=== PATIENT | female | born 1940 | race Caucasian/White ===

== ENCOUNTER → 2017-01-31 | Outpatient (CLI) | payer MEDICARE ==
[~2017-01-31] MED LIST: ATENOLOL50 MG PO; BENADRYL25 M1 PO; CHEWABLE ASPIRI81 MG PO; MEDROL 4MG. DOSE4 MG PO
--- NOTE | 2017-02-01 08:01 | RADIOLOGY REPORT PS360 ---
MRI-BRAIN W/O HISTORY: SYNCOPE ORDERING PHYSICIAN: Danny Carlson MD PATIENT AGE: 76 years COMPARISON: None TECHNIQUE: Standard multiplanar multiecho sequences are performed without contrast. FINDINGS: No midline shift, mass effect, intracranial hemorrhage, or hydrocephalus. No evidence of acute infarction or abnormal restricted diffusion. The cerebellopontine angles, cerebellum, and brainstem have an unremarkable appearance. There are scattered periventricular and subcortical T2 white matter hyperintensities consistent with ischemic gliotic change from microvascular disease. The hippocampal gyri are unremarkable in the temporal horns are symmetric. No mastoid effusion. Minimal mucosal thickening involves the sphenoid sinus on the left. IMPRESSION: 1. No acute intracranial pathology. 2. Mild periventricular ischemic gliotic change from microvascular disease. 3. Mild left sphenoid sinus disease
== END ==
LOC: RAD 13:27
DX: R55 Syncope and collapse (principal)

== ENCOUNTER → 2017-02-11 | Outpatient (CLI) | payer MEDICARE | LOC: RT 12:34 | DX: R55 Syncope and collapse (principal) ==

== ENCOUNTER 2017-05-04 00:39 | Inpatient (IN) | payer MEDICARE ==
[~2017-05-04] VITALS: Ht 152.4 cm; Wt 66.4 kg
[2017-05-04] VITALS (8 sets, daily range): BP systolic 112–148; BP diastolic 45–81
[~2017-05-04 00:39] MED LIST changes: +ASPIRIN 81MG TA81 MG PO; -CHEWABLE ASPIRI81 MG PO
[2017-05-04] MEDS ORDERED: CARVEDILOL 25MG25 MG PO (00:55)
[2017-05-04 01:08] LABS: LYMPH # 1.3 K/mm3 (0.7-4.5); LYMPH % 7.4 % (10-50.0)
[2017-05-04 01:11] LABS: HEMOGLOBIN 12.1 g/dL (12.2-16.2)
[2017-05-04 01:16] LABS: URINE BLOOD NEGATIVE (NEG)
[2017-05-04 01:20] LABS: URINE BILIRUBIN - DIPSTICK NEGATIVE (NEG)
--- OUTSIDE RECORDS SUMMARY | 2017-05-04 01:21 | External Medical Summary Rpt ---
Author Author SUBHASH Langford, SUBHASH Langford Organization [employer] Address Unknown Phone Unavailable
--- OUTSIDE RECORDS SUMMARY | 2017-05-04 01:21 | External Medical Summary Rpt | CCD ---
Author Author [employer] Organization [employer] Address Unknown Phone Unavailable Purpose Continuity of Care Document - through 2016
--- OUTSIDE RECORDS SUMMARY | 2017-05-04 01:21 | External Medical Summary Rpt | CCD ---
Demographics Preferred Language Turkmen Marital Status Unknown Anabaptist Affiliation Unknown Race Unknown Ethnic Group Unknown Author Author , SUBHASH Organization [employer] Address Unknown Phone Immunization Unable to retrieve immunization data due to connection failure with Immunization Registry. Please try again later.
--- OUTSIDE RECORDS SUMMARY | 2017-05-04 01:21 | External Medical Summary Rpt | CCD ---
Demographics Preferred Language S[place] Tomean Marital Status Unknown Adventism Affiliation Unknown Race Unknown Ethnic Group Unknown Author Author , SUBHASH Organization [employer] Address Unknown Phone Immunization Unable to retrieve immunization data due to connection failure with Immunization Registry. Please try again later.
[2017-05-04 01:38] LABS: NEUTROPHILS 83 % (42-76)
--- NOTE | 2017-05-04 02:32 | Emergency Room Report ---
History of Present Illness Time Seen by MD Olivas Presenting Problem in Triage Pt arrived:Walked Presenting Problem:SHARP LOWER ABDOMINAL PAIN Onset of symptoms date/time:05/04/17 or onset unknown for: Treatment Prior to Arrival: TYLENOL AROUND 1700 [employer] Provided by:SELF Sepsis Risk Assessment: Temp: 100.6 B/P: 149/75 MAP: 102 Pulse: 87 Resp: 18 Recent fever? N Clinical Suspician of Infection? N Mental Status: 1 - Regular (Normal Baseline) Sepsis Risk:Low Sepsis Risk Have you (or family members/close friends) recently traveled outside the [place]? N If Yes, where/when: Have you had exposure to infectious disease within the past month? N TB? Other? Specify: Source patient, RN notes reviewed, family, old records Exam Limitations no limitations Comment progressive abd pain over the last 2 days with assoc constipation with no vomiting or diarrhea and no fever - Cardiac Chest Pain Chest pain indicative of cardiac No Timing/Duration this evening Severity moderate ALLERGIES Coded Allergies: MDX - Levofloxacin (Levofloxacin) (Mild, NA-HALLUCINATIONS 06/12/10) Converted from Generic Allergy: Levofloxacin Converted Allergy Severity of U Converted Allergy Reaction of Converted from Ingredient Allergy: Levofloxacin Home Medications Reported Medications ATENOLOL (Atenolol 50MG) 50 MG PO BID Aspirin (Aspirin, Chewable) 81 MG PO DAILY Carvedilol (Carvedilol 25MG) 25 MG PO BID History Medical History General CAD? No Angina: No MS: No Hypertension? Yes Hyperlipidemia? No CHF? No DVT? No PE? No COPD? No Asthma? No Anemia? No GERD? No Gastric ulcers? No GI Bleed? No Hernia? No Thyroid Problems? Yes Hypothyroidism? Yes CVA? No Seizures? No Diabetes? No Renal Insuffiency? No End Stage Renal Disease? No UTI? No Stones? No BPH? No GB Disease: Yes Nephritic Syndrome? No Asplenia? No Hepatitis? No Sickle Cell Disease? No Arthritis? No Migraines? No Cataracts? No Glaucoma? No MRSA? No HIV? No TB? No Anxiety? No Depression? No Cancer? No More? No Immunization Hx DT/Tetanus NOT SURE Flu REFUSED Pneumonia REFUSED Surgical Hx Previous Surgery?Y D & C Gallbladd Family History Family Hx Diabetes No CAD No Hypertension No Hyperlipidemia No Cancer No TB No Social History Smoking Hx Smoker: Never Smoker Tobacco: No Are you/the child exposed to second-hand smoke: No Alcohol Alcohol: No Drugs none Review of Systems All Other Systems Reviewed and Negative Constitutional denies fever Eyes denies drainage ENT denies: ear discharge, epistaxis, throat pain. Respiratory denies cough, denies shortness of breath, denies wheezing Cardiovascular denies chest pain, denies palpitations, denies syncope Gastrointestinal see HPI, abdominal pain, constipation, denies diarrhea, denies nausea, denies vomiting Genitourinary denies: dysuria, frequency, hesitancy, hematuria. Musculoskeletal denies back pain, denies joint pain, denies joint swelling, denies neck pain Skin denies rash Psychiatric/Neurological denies headache, denies seizure Physical Exam Vital Signs Vital Signs Date Time Temp Pulse Resp B/P Pulse O2 O2 Flow FiO2 Ox Delivery Rate 05/04 0234 87 20 160/76 93 05/04 0155 100.6 87 18 149/75 93 05/04 0044 98.5 88 18 145/81 98 - WBC >12,000 or <4,000 or 10% bands? 2 or more SIRS Criteria Met? B/P:160/76 MAP:102 Creatinine >2.0? UA output<0.5ml/kg/hr for 2 hrs? Platelet count >100,000? Lactate >2.0mmol/1? INR >1.2 or PTT > than 60 sec? Evidence of Organ Dysfunction? Provider documented clinical suspician of infection? N Sepsis Criteria Count: 0 Sepsis Risk: Low Sepsis Risk General Appearance no apparent distress Eye Exam - bilateral eye PERRL, bilateral eye EOMI Ear, Nose, Throat normal ENT inspection Neck supple Respiratory Status No: respiratory distress. Lung Sounds bilateral: lungs clear. 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 No Results/Orders Laboratory Tests 05/04/17 0250: Lactic Acid Pending 05/04/17104: Urine Color YELLOW, Urine Appearance CLOUDY, Urine pH 6.0, Ur Specific [place] 1.020, Urine Protein TRACE H, Urine Ketones TRACE H, Urine Blood NEGATIVE, Urine Nitrate NEGATIVE, Urine Bilirubin NEGATIVE, Urine Urobilinogen 4.0, Ur Leukocyte Esterase 2+ H, Urine WBC 5-10, Amorphous Sediment TRACE, Urine Glucose NEGATIVE 05/04/1799: Sodium 137, Potassium 3.3 L, Chloride 102, Carbon Dioxide 25, BUN 15, Creatinine 0.8, Estimated Creat Clear 63, Estimated GFR (MDRD) 70, Glucose 124 H, Calcium 8.3 L, Total Bilirubin 0.8, AST 20, ALT 15, Alkaline Phosphatase 99, Total Protein 8.1, Albumin 2.9 L, Globulin 5.2 H, Albumin/Globulin Ratio 0.6 L, Amylase 60, Lipase 82, WBC 17.6 H, RBC 4.09 L, Hgb 12.1 L, Hct 36.0 L, MCV 88.1, RDW 13.4, Plt Count 365, MPV 7.2 L, Gran % 89.1 H, Gran # 15.7 H, Total Counted 100, Lymphocytes % 7.4 L, Monocytes % 3.0, Eosinophils % 0.4, Basophils % 0.2, Neutrophils 83 H, Band Neutrophils 12 H, Lymphocytes (Manual) 5 L, Lymphocytes # 1.3, Monocytes # 0.5, Eosinophils # 0.1, Basophils # 0.0, Platelet Estimate NORMAL, Polychromasia SL., Rouleaux 1+, PUBS MCHC 33.6, MCH 29.6 Current Medication Orders Sig/Ottoniel Start time Last Medication Dose Route Stop Time Status Admin Ertapenem 1 GM ONCE ONE 05/04 0315 AC Sodium Chloride 50 ML IV 05/04 0344 Sodium Chloride 10 ML PRN PRN 05/04 100 AC IV 05/05 005 Orders Procedure Date/time Status DIET-NOTHING BY MOUTH 05/04 B Active LACTIC ACID 05/04 0305 Active CULTURE, BLOOD 05/04 0238 Active CULTURE, URINE 05/[address] ABD & PELVIS W/O CONTRAST 05/04 104 Active DIFFERENTIAL-WBC 05/[address] ABD/PELVIS REQ 05/04 58 Active IV SALINE LOCK 05/04 58 Active URINALYSIS/COMPLETE 05/04 58 Complete LIPASE 05/04 58 Complete COMPLETE METABOLIC PANEL 05/04 58 Complete CBC WITH AUTO DIFF 05/04 58 Complete AMYLASE 05/04 58 Complete XRAY/CT/US XRAY/CT/US CT abdomen, pelvis CT interpretation by discussed w/radiologist Time results known: 0200 CT Results abnormal (colitis) Departure Departure Time of Disposition 0245 Disposition Still a Patient Clinical Impression Primary Impression: Colitis Secondary Impressions: Heart murmur, systolic Condition STABLE Referrals Danny Philip MD discussed with dr philip ED Critical Care Critical Care No at 0312
--- OUTSIDE RECORDS SUMMARY | 2017-05-04 03:12 | External Medical Summary Rpt | CCD ---
Author Author , SUBHAHS Organization [employer] Address Unknown Phone [email or web address] Purpose Continuity of Care Document - 05-04-2017 through 2016 Results Labs Lab Lab Date Result Refere Interp Status Commen Order Detail nces retati t Range on Urinalysis with microscopy (05-04-2017 01:05) Urine CLOUDY CLEAR complet appeara 017 CLOUDY ed nce 01:05 L determi nation Amorpho TRACE NONE complet us 017 TRACE L ed sedimen 01:05 t detecti on in urine se Urine NEGATIV NEG complet total 017 E ed bilirub 01:05 NEGATIV in E L detecti on by test Comment: BILIRUBIN CONFIRMED WITH ICTOTEST Urine NEGATIV NEG complet blood 017 E ed detecti 01:05 NEGATIV on E L Urine YELLOW YELLOW complet color 017 YELLOW ed 01:05 L Glucose = NEG complet ur 017 NEGATIV ed test 01:05 E strip Urine TRACE NEG complet ketones 017 TRACE L ed 01:05 mg/dL detecti on by automat ed piyush Mucus 2+ 2+ L NEG complet detecti 017 ed on in 01:05 urine sedimen t by lig Urine NEGATIV NEG complet nitrite 017 E ed 01:05 NEGATIV detecti E L on by test strip Urine = 6.0 5.0-8.5 complet pH 017 ed 01:05 Urine = TRACE NEG complet protein 017 mg/dL ed 01:05 measure ment by automat ed t Urine 2 = 1.020 1.005-1 complet specifi 017 .030 ed c 01:05 gravity measure ment Urine 4.0 4.0 NEG complet urobili 017 L ed nogen 01:05 E.U./dL detecti on by test str Urine 10-28-2 5 - 10 O complet leukocy 017 wbc/hpf ed piyush 01:05 count (number /volume ) Urinalysis dipstick W Reflex Microscopic panel in Urine (05-04-2017 01:05) Amorpho TRACE NONE complet us 017 ed sedimen 01:05 t [Presen ce] in Urine sedimen t by Light microsc opy Leukocy 5-10 O complet piyush 017 wbc/hpf ed [#/volu 01:05 me] in Urine Urinalysis dipstick W Reflex Microscopic panel in Urine (05-04-2017 01:05) Appeara CLOUDY CLEAR complet nce of ed Urine 01:05 Bilirub NEGATIV NEG complet in 017 E ed [Presen 01:05 ce] in Urine by Test strip Erythro NEGATIV NEG complet cytes 017 E ed [Presen 01:05 ce] in Urine Color YELLOW YELLOW complet of 017 ed Urine 01:05 Ketones TRACE NEG Abnorma complet 017 l ed [Presen 01:05 ce] in Urine by Automat ed test strip Mucus 2+ NEG Abnorma complet [Presen 017 l ed ce] in 01:05 Urine sedimen t by Light microsc opy Nitrite NEGATIV NEG complet 017 E ed [Presen 01:05 ce] in Urine by Test strip Urobili 4.0 NEG complet nogen 017 ed [Presen 01:05 ce] in Urine by Test strip Amylase ser/plas (05-04-2017 01:00) Amylase = 60 25-115 complet 017 U/L ed ser/love 01:00 s Comprehensive metabolic panel (05-04-2017 01:00) Serum = 0.6 1.1-1.8 complet or 017 ed plasma 01:00 albumin /globul in mass ra Serum = 2.9 3.4-5.0 complet or 017 gm/dL ed plasma 01:00 albumin measure ment (mas Serum = 99 46-116 complet or 017 U/L ed plasma 01:00 alkalin e phospha tase denise Serum = 0.8 0.2-1.0 complet or 017 mg/dL ed plasma 01:00 total bilirub in measure m Serum = 15 7-18 complet or 017 mg/dL ed plasma 01:00 urea nitroge n measure men Serum = 8.3 8.5-10. complet or 017 mg/dL 1 ed plasma 01:00 calcium measure ment (mas Serum = 102 98-107 complet or 017 mmoL/L ed plasma 01:00 chlorid e measure ment (mo Carbon = 25 21.0-32 complet dioxide 017 mmoL/L .0 ed 01:00 measure ment Serum = 0.8 0.55-1. complet or 017 mg/dL 02 ed plasma 01:00 creatin ine measure ment ( Estimat = 63 50-200 complet ion of 017 ML/MIN ed creatin 01:00 ine renal clearan ce Estimat = 70 59- complet ed 017 ML/MIN ed glomeru 01:00 lar filtrat ion rate (GF Comment: REFERENCE RANGE: >60 ML/MIN/1.73 SQUARE METERS Comment: If this patient is -Macanese, then multiply the Comment: result by 1.210. Serum = 5.2 1.3-3.2 complet globuli 017 gm/dL ed n 01:00 measure ment (mass/v olume) Serum = 124 74-106 complet or 017 mg/dL ed plasma 01:00 glucose measure ment (mas Serum = 3.3 3.5-5.1 complet potassi 017 mmoL/L ed um 01:00 measure ment Serum = 137 136-145 complet sodium 017 mmoL/L ed measure 01:00 ment Serum = 20 15-37 complet or 017 U/L ed plasma 01:00 asparta te aminotr ansfera ALT = 15 12-78 complet (SGPT) 017 U/L ed ser/love 01:00 s Protein = 8.1 6.4-8.2 complet total 017 gm/dL ed ser/love 01:00 s Lipase measurement (05-04-2017 01:00) Lipase = 82 73-393 complet measure 017 U/L ed ment 01:00 CBC w auto diff (05-04-2017 01:00) Automat = 0.0 0-0.2 complet ed 017 K/MM3 ed blood 01:00 basophi l count (count/ vo Baso % = 0.2 % 0.1-2.0 complet 017 ed 01:00 Automat = 0.1 0.0-0.4 complet ed 017 K/mm3 ed blood 01:00 eosinop hil count Automat = 0.4 % 0.1-12. complet ed 017 0 ed blood 01:00 eosinop hils/10 0 leukocy t Blood = 15.7 1.8-7.8 complet granulo 017 K/mm3 ed cytes 01:00 automat ed count (numb Granulo = 89.1 37.0-80 complet cyte 017 % .0 ed percent 01:00 age Blood = 36.0 37.0-47 complet hematoc 017 % .0 ed rit 01:00 (volume fractio n) Blood = 12.1 12.2-16 complet hemoglo 017 g/dL .2 ed bin 01:00 measure ment (mass/v olum Absolut = 1.3 0.7-4.5 complet e 017 K/mm3 ed lymphoc 01:00 yte count Lymphoc = 7.4 % 10-50.0 complet yte 017 ed count, 01:00 blood, automat ed Mean = 29.6 27-31.2 complet corpusc 017 pg ed ular 01:00 hemoglo bin (MCH) determ Automat = 33.6 31.8-35 complet ed 017 g/dl .4 ed erythro 01:00 cyte mean corpusc ular h Automat = 88.1 82.2-97 complet ed 017 fl .8 ed erythro 01:00 cyte mean corpusc ular v Absolut = 0.5 0.1-1.0 complet e 017 K/mm3 ed monocyt 01:00 e count Vance % = 3.0 % 1.7-9.3 complet 017 ed 01:00 Automat = 7.2 7.4-10. complet ed 017 fl 4 ed blood 01:00 platele t mean volume denise Blood = 365 142-424 complet platele 017 K/mm3 ed t count 01:00 Red = 4.09 4.2-5.4 complet blood 017 M/mm3 ed cell 01:00 count Automat = 13.4 11.5-17 complet ed 017 % .5 ed erythro 01:00 cyte distrib ution width Blood = 17.6 4.8-10. complet leukocy 017 K/MM3 8 ed piyush 01:00 count (number /volume ) Differential panel, method unspecified - (05-04-2017 01:00) Automat = 12 % 0-8 complet ed 017 ed blood 01:00 band neutrop hil percent a LYMPH 5 % 10-50 complet 017 ed 01:00 Platele NORMAL complet t 017 NORMAL ed estimat 01:00 L e Blood SL. SL. complet polychr 017 L ed omasia 01:00 detecti on by light m Neutrop = 83 % 42-76 complet hil 017 ed count 01:00 Erythro 1+ 1+ L complet cyte 017 ed rouleau 01:00 x microsc opic examina Blood = 100 complet total 017 #CELLS ed cell 01:00 count Differential panel, method unspecified - (05-04-2017 01:00) LYMPH 5 % 10% - Low complet 017 50% ed 01:00 Platele NORMAL complet ts 017 ed [Presen 01:00 ce] in Blood by Light microsc opy Polychr SL. complet omasia 017 ed [Presen 01:00 ce] in Blood by Light microsc opy Rouleau 1+ complet x 017 ed [Presen 01:00 ce] in Blood by Light microsc opy
--- OUTSIDE RECORDS SUMMARY | 2017-05-04 03:12 | External Medical Summary Rpt | CCD ---
Author Author , SUBHASH Organization [employer] Address Unknown Phone [email or web address] Purpose Continuity of Care Document - 05-04-2017 [...] SQUARE METERS Comment: If this patient is -German, then multiply the Comment: result by 1.210. [...] 017 K/mm3 ed monocyt 01:00 e count Ralls % = 3.0 % 1.7-9.3 complet 017 [...]
--- OUTSIDE RECORDS SUMMARY | 2017-05-04 03:13 | External Medical Summary Rpt ---
Author Author SUBHASH Langford, [employer] Organization [employer] Address Unknown Phone Unavailable Results Urinalysis dipstick W Reflex Microscopic panel in Urine Observa Value Referen Units Interpr Notes Date tion ce etation Range Appeara CLOUDY CLEAR No No No May 04 nce of informa informa informa 2017 Urine tion in tion in tion in 1:05 AM source source source data data data Amorpho TRACE NONE No No No May 04 us informa informa informa 2017 sedimen tion in tion in tion in 1:05 AM t source source source [Presen data data data ce] in Urine sedimen t by Light microsc opy Bilirub NEGATIV NEG No No BILIRUB May 04 in E informa informa IN 2016 [Presen tion in tion in CONFIRM 1:05 AM ce] in source source ED WITH Urine data data by Test ICTOTES strip T Erythro NEGATIV NEG No No No May 04 cytes E informa informa informa 2016 [Presen tion in tion in tion in 1:05 AM ce] in source source source Urine data data data Color YELLOW YELLOW No No No May 04 of informa informa informa 2016 Urine tion in tion in tion in 1:05 AM source source source data data data Glucose NEG No No No May 04 [Mass/vol informati informati informati 2016 1:05 ume] in on in on in on in AM Urine by source source source Test data data data strip Ketones TRACE NEG mg/dL Abnorma No May 04 l informa 2016 [Presen tion in 1:05 AM ce] in source Urine data by Automat ed test strip Mucus 2+ NEG No Abnorma No May 04 [Presen informa l informa 2016 ce] in tion in tion in 1:05 AM Urine source source sedimen data data t by Light microsc opy Nitrite NEGATIV NEG No No No May 04 E informa informa informa 2016 [Presen tion in tion in tion in 1:05 AM ce] in source source source Urine data data data by Test strip pH of 5.0 - 8.5 No Normal No May 04 Urine informati informati 2016 1:05 on in on in AM source source data data Protein NEG mg/dL High No May 04 [Mass/vol informati 2016 1:05 ume] in on in AM Urine by source Automated data test strip Specific 1.005 - No Normal No May 04 gravity 1.030 informati informati 2016 1:05 of Urine on in on in AM source source data data Urobili 4.0 NEG E.U./dL No No May 04 nogen informa informa 2016 [Presen tion in tion in 1:05 AM ce] in source source Urine data data by Test strip Leukocy [5 O wbc/hpf No No May 04 piyush wbc/hpf informa informa 2016 [#/volu ; 10 tion in tion in 1:05 AM me] in wbc/hpf source source Urine ] data data Urinalysis dipstick W Reflex Microscopic panel in Urine Observa Value Referen Units Interpr Notes Date tion ce etation Range Appeara CLOUDY CLEAR No No No May 04 nce of informa informa informa 2017 Urine tion in tion in tion in 1:05 AM source source source data data data Bilirub NEGATIV NEG No No BILIRUB May 04 in E informa informa IN 2016 [Presen tion in tion in CONFIRM 1:05 AM ce] in source source ED WITH Urine data data by Test ICTOTES strip T Erythro NEGATIV NEG No No No May 04 cytes E informa informa informa 2016 [Presen tion in tion in tion in 1:05 AM ce] in source source source Urine data data data Color YELLOW YELLOW No No No May 04 of informa informa informa 2017 Urine tion in tion in tion in 1:05 AM source source source data data data Glucose NEG No No No May 04 [Mass/vol informati informati informati 2016 1:05 ume] in on in on in on in AM Urine by source source source Test data data data strip Ketones TRACE NEG mg/dL Abnorma No May 04 l informa 2016 [Presen tion in 1:05 AM ce] in source Urine data by Automat ed test strip Mucus 2+ NEG No Abnorma No May 04 [Presen informa l informa 2016 ce] in tion in tion in 1:05 AM Urine source source sedimen data data t by Light microsc opy Nitrite NEGATIV NEG No No No May 04 E informa informa informa 2016 [Presen tion in tion in tion in 1:05 AM ce] in source source source Urine data data data by Test strip pH of 5.0 - 8.5 No Normal No May 04 Urine informati informati 2016 1:05 on in on in AM source source data data Protein NEG mg/dL High No May 04 [Mass/vol ati 2016 1:05 ume] in on in AM Urine by source Automated data test strip Specific 1.005 - No Normal No May 04 gravity 1.030 informati informati 2016 1:05 of Urine on in on in AM source source data data Urobili 4.0 NEG E.U./dL No No May 04 nogen informa informa 2016 [Presen tion in tion in 1:05 AM ce] in source source Urine data data by Test strip CBC W Auto Differential panel in Blood Observa Value Referen Units Interpr Notes Date tion ce etation Range Basophils 0 - 0.2 K/MM3 Normal No May 04 informati 2016 1:00 [#/volume on in AM ] in source Blood by data Automated count Basophils 0.1 - 2.0 % Normal No May 04 /100 informati 2016 1:00 leukocyte on in AM s in source Blood by data Automated count Eosinophi 0.0 - 0.4 K/mm3 Normal No May 04 ls informati 2016 1:00 [#/volume on in AM ] in source Blood by data Automated count Eosinophi 0.1 - % Normal No May 04 ls/100 12.0 informati 2016 1:00 leukocyte on in AM s in source Blood by data Automated count Granulocy 1.8 - 7.8 K/mm3 High No May 04 piyush informati 2016 1:00 [#/volume on in AM ] in source Blood by data Automated count Granulocy 37.0 - % High No May 04 piyush/100 80.0 informati 2016 1:00 leukocyte on in AM s in source Blood by data Automated count Hematocri 37.0 - % Low No May 04 t [Volume 47.0 informati 2017 1:00 on in AM Fraction] source of Blood data Hemoglobi 12.2 - g/dL Low No May 04 n 16.2 informati 2016 1:00 [Mass/vol on in AM ume] in source Blood data Lymphocyt 0.7 - 4.5 K/mm3 Normal No May 04 es informati 2016 1:00 [#/volume on in AM ] in source Unspecifi data ed specimen by Automated count Lymphocyt 10 - 50.0 % Low No May 04 es informati 2016 1:00 [#/volume on in AM ] in source Unspecifi data ed specimen by Automated count Erythrocy 27 - 31.2 pg Normal No May 04 te mean informati 2016 1:00 corpuscul on in AM ar source hemoglobi data n [Entitic mass] Erythrocy 31.8 - g/dl Normal No May 04 te mean 35.4 informati 2016 1:00 corpuscul on in AM ar source hemoglobi data n concentra tion [Mass/vol ume] by Automated count Erythrocy 82.2 - fl Normal No May 04 te mean 97.8 informati 2016 1:00 corpuscul on in AM ar volume source [Entitic data volume] by Automated count Monocytes 0.1 - 1.0 K/mm3 Normal No May 04 informati 2016 1:00 [#/volume on in AM ] in source Blood by data Automated count Monocytes 1.7 - 9.3 % Normal No May 04 /100 informati 2016 1:00 leukocyte on in AM s in source Blood by data Automated count Platelet 7.4 - fl Low No May 04 mean 10.4 informati 2016 1:00 volume on in AM [Entitic source volume] data in Blood by Automated count Platelets 142 - 424 K/mm3 No No May 04 informati informati 2016 1:00 [#/volume on in on in AM ] in source source Blood data data Erythrocy 4.2 - 5.4 M/mm3 Low No May 04 piyush informati 2016 1:00 [#/volume on in AM ] in source Amniotic data fluid Erythrocy 11.5 - % Normal No May 04 te 17.5 informati 2016 1:00 distribut on in AM ion width source [Entitic data volume] by Automated count Leukocyte 4.8 - K/MM3 High No May 04 s 10.8 informati 2016 1:00 [#/volume on in AM ] in source Blood data Differential panel, method unspecified - Observa Value Referen Units Interpr Notes Date tion ce etation Range Neutrophi 0 - 8 % High No May 04 ls.band informati 2016 1:00 form/100 on in AM leukocyte source s in data Blood by Automated count LYMPH 5 10 - 50 % Low No May 04 informa 2016 tion in 1:00 AM source data Platele NORMAL No No No No May 04 ts informa informa informa informa 2016 [Presen tion in tion in tion in tion in 1:00 AM ce] in source source source source Blood data data data data by Light microsc opy Polychr SL. No No No No May 04 omasia informa informa informa informa 2016 [Presen tion in tion in tion in tion in 1:00 AM ce] in source source source source Blood data data data data by Light microsc opy Neutrophi 42 - 76 % High No May 04 ls informati 2016 1:00 [#/volume on in AM ] in source Blood by data Automated count Rouleau 1+ No No No No May 04 x informa informa informa informa 2016 [Presen tion in tion in tion in tion in 1:00 AM ce] in source source source source Blood data data data data by Light microsc opy Cells No #CELLS No No May 04 Counted informati informati informati 2016 1:00 Total [#] on in on in on in AM in Blood source source source data data data Amylase [Enzymatic activity/volume] in Serum or Plasma Observa Value Referen Units Interpr Notes Date ti ce etation Range Amylase 25 - 115 U/L Normal No May 04 [Enzymati informati 2016 1:00 c on in AM activity/ source volume] data in Serum or Plasma Comprehensive metabolic 2000 panel in Serum or Plasma Observa Value Referen Units Interpr Notes Date tion ce etation Range Albumin/G 1.1 - 1.8 No Low No May 04 lobulin informati informati 2016 1:00 [Mass on in on in AM ratio] in source source Serum or data data Plasma Albumin 3.4 - 5.0 gm/dL Low No May 04 [Mass/vol informati 2016 1:00 ume] in on in AM Serum or source Plasma data Alkaline 46 - 116 U/L Normal No May 04 phosphata informati 2016 1:00 se on in AM [Enzymati source c data activity/ volume] in Serum or Plasma Bilirubin 0.2 - 1.0 mg/dL Normal No May 04 .total informati 2016 1:00 [Mass/vol on in AM ume] in source Serum or data Plasma Urea 7 - 18 mg/dL Normal No May 04 nitrogen informati 2016 1:00 [Mass/vol on in AM ume] in source Serum or data Plasma Calcium 8.5 - mg/dL Low No May 04 [Mass/vol 10.1 informati 2016 1:00 ume] in on in AM Serum or source Plasma data Chloride 98 - 107 mmoL/L Normal No May 04 [Moles/vo informati 2016 1:00 lume] in on in AM Serum or source Plasma data Carbon 21.0 - mmoL/L Normal No May 04 dioxide, 32.0 informati 2016 1:00 total on in AM [Moles/vo source lume] in data Serum or Plasma Creatinin 0.55 - mg/dL Normal No May 04 e 1.02 informati 2016 1:00 [Mass/vol on in AM ume] in source Serum or data Plasma Creatinin 50 - 200 ML/MIN Normal No May 04 e renal informati 2016 1:00 clearance on in AM source predicted data by Cockcroft -Gault formula Estimated 59- ML/MIN No REFERENCE May 04 informati RANGE: 2017 1:00 glomerula on in >60 AM r source ML/MIN/1. filtratio data 73 SQUARE n rate METERSIf (GF this patient is -A merican, then multiply theresult by 1.210. Globulin 1.3 - 3.2 gm/dL High No May 04 [Mass/vol informati 2016 1:00 ume] in on in AM Serum source data Glucose 74 - 106 mg/dL High No May 04 [Mass/vol informati 2016 1:00 ume] in on in AM Serum or source Plasma data Potassium 3.5 - 5.1 mmoL/L Low No May 04 informati 2016 1:00 [Moles/vo on in AM lume] in source Serum or data Plasma Sodium 136 - 145 mmoL/L Normal No May 04 [Moles/vo informati 2016 1:00 lume] in on in AM Serum or source Plasma data Aspartate 15 - 37 U/L Normal No May 04 informati 2016 1:00 aminotran on in AM sferase source [Enzymati data c activity/ volume] in Serum or Plasma Alanine 12 - 78 U/L Normal No May 04 aminotran informati 2016 1:00 sferase on in AM [Enzymati source c data activity/ volume] in Serum or Plasma Protein 6.4 - 8.2 gm/dL Normal No May 04 [Mass/vol informati 2016 1:00 ume] in on in AM Serum or source Plasma data Lipase [Enzymatic activity/volume] in Serum or Plasma Observa Value Referen Units Interpr Notes Date tion ce etation Range Lipase 73 - 393 U/L Normal No May 04 [Enzymati informati 2016 1:00 c on in AM activity/ source volume] data in Serum or Plasma
--- OUTSIDE RECORDS SUMMARY | 2017-05-04 03:13 | External Medical Summary Rpt | CCD ---
Demographics Preferred Language [place] Marital Status Unknown Anabaptism Affiliation Unknown Race Unknown Ethnic Group Unknown Author Author , [employer] Organization [employer] Address Unknown Phone Immunization Unable to retrieve immunization data due to connection failure with Immunization Registry. Please try again later.
--- OUTSIDE RECORDS SUMMARY | 2017-05-04 03:13 | External Medical Summary Rpt | CCD ---
Demographics Preferred Language [place]i Marital Status Unknown Taoism Affiliation Unknown Race Unknown Ethnic Group Unknown Author Author , [employer] Organization [employer] Address Unknown Phone Immunization Unable to retrieve immunization data due to connection failure with Immunization Registry. Please try again later.
[2017-05-04] MEDS ORDERED: LEVOTHYROXINE0.1 MG PO (04:29)
--- NOTE | 2017-05-04 06:31 | RADIOLOGY REPORT PS360 ---
CT ABD PELVIS W/O CONTRAST CLINICAL INDICATION: Lower abdominal pain ABD PAIN ORDERING PHYSICIAN: Danny Carlson MD PATIENT AGE: 76 years COMPARISON: 06/12/2010 TECHNIQUE: Axial images obtained with sagittal and coronal reformats. PROCEDURE: Oral Contrast: None IV Contrast: None . FINDINGS: Lower thorax: Borderline cardiomegaly . Small hiatal hernia ABDOMEN: Liver: No masses or biliary dilatation. Gallbladder: Status post cholecystectomy. No ductal dilatation. Pancreas: No masses or peripancreatic fluid collections. Spleen: Unremarkable. Adrenals: Unremarkable Kidneys/ureters: 4 mm nonobstructing stone upper pole right kidney. No hydronephrosis or hydroureter. Stomach bowel: Severe wall thickening involving the rectosigmoid colon with extensive surrounding inflammatory changes. There is severe diverticulosis of the sigmoid colon as well as diverticulosis of the ascending and transverse colon. There is moderate thickening of the adjacent small bowel loops around the sigmoid colon in the pelvis. Small amount fluid is present in the cul-de-sac measuring 4 x 4 cm. No intestinal obstruction or free air evident. There is stranding of the peritoneal fat within the pelvis. Appendix: No evidence of appendicitis. PELVIS: Reproductive: Mild prominence of the left ovary Bladder: Nondistended. No obvious stones or masses. ABDOMEN & PELVIS: Peritoneum: Free fluid is present in the pelvis and there are stranding of the peritoneal fat within the pelvis. Lymph nodes: No enlarged lymph nodes apparent. Vasculature: No evidence of abdominal aortic aneurysm. No retroperitoneal hemorrhage evident. Bones: No acute fracture IMPRESSION: 1. Severe thickening of the sigmoid and rectosigmoid colon with associated inflammation of the adjacent small bowel within the pelvis. Colonic diverticulosis. Stranding of the pericolic fat. Colitis is considered. Long segment diverticulitis is also considered. Cannot exclude the possibility of an abscess with localized fluid in the cul-de-sac. Repeat exam with IV and double dose oral contrast may be of further value. 2. Right nephrolithiasis
--- NOTE | 2017-05-04 08:52 | HISTORY AND PHYSICAL REPORT ---
Demographics: Admit date: 05/04/17 Chief complaint: Left lower quadrant abdominal pain PRIMARY DIAGNOSIS: COLITIS Allergies: Coded Allergies: levofloxacin (From LEVAQUIN) (05/04/17) History of present illness: History of present illness: 76-year-old white female with history of diverticulitis/diverticulosis in the past, admitted in 2009 with medical therapy. Apparently colonoscopy had been planned on discharge but for some reason this was never accomplished. Patient has been doing well but 3 days ago noted some swelling in her abdomen and felt that she had "gas" and was busy taking her to dialysis and did not come to the office. Pain got worse, she had a fever, came to the emergency department and CT scan revealed colitis, significant thickening and a possible microabscess in the sigmoid area. She is admitted to hospital for IV antibiotics. This morning she ought feels better with IV fluids and one dose of intravenous Invanz. Past medical history: Family HX Diabetes No CAD No Hypertension No Hyperlipidemia No Cancer No TB No Immunization HX DT/Tetanus NOT SURE Flu REFUSED Pneumonia Refuses TB Test in last year No General CAD? No Angina: No [place]: No Hypertension? Yes Hyperlipidemia? No CHF? No DVT? No PE? No COPD? No Asthma? No Anemia? No GERD? No Gastric ulcers? No GI Bleed? No Hernia? No Thyroid Problems? Yes Hypothyroidism? Yes CVA? No Seizures? No Diabetes? No Renal Insuffiency? No UTI? No Stones? No BPH? No GB Disease: Yes Nephritic Syndrome? No Asplenia? No Hepatitis? No Sickle Cell Disease? No Arthritis? No Migraines? No Cataracts? No Glaucoma? No MRSA? No HIV? No TB? No Anxiety? No Depression? No Cancer? No More? No Past Surgical HX Previous Surgery?Y D & C Gallbladd Current home meds: Reported Medications ATENOLOL (Atenolol 50MG) 50 MG PO BID Aspirin (Aspirin, Chewable) 81 MG PO DAILY LEVOTHYROXINE SOD (Synthroid) (Unknown Dose) PO DAILY Carvedilol (Carvedilol 25MG) 25 MG PO BID Social Hx: Smoking HX Tobacco No Are you/the child exposed to second-hand smoke: No Alcohol Alcohol: No Hx of Drug Use Drug Use? No Patien't marital status is Patient's support system is good Review of systems: Constitutional fever, malaise. Respiratory No: no symptoms reported. Cardiovascular No no symptoms reported Gastrointestinal/Abdominal see HPI, abdomen distended, abdominal pain, No blood streaked bowels, constipated, No diarrhea, No difficulty swallowing, nausea, poor appetite, No poor fluid intake, No rectal bleeding, No vomiting Genitourinary No: no symptoms reported. Musculoskeletal No: no symptoms reported. Neurological No: see HPI. Exam: Lab data for last 24 hours: Laboratory Tests 05/04/17249: Lactic Acid 0.9 05/04/17104: Urine Color YELLOW, Urine Appearance CLOUDY, Urine pH 6.0, Ur Specific [place] 1.020, Urine Protein TRACE H, Urine Ketones TRACE H, Urine Blood NEGATIVE, Urine Nitrate NEGATIVE, Urine Bilirubin NEGATIVE, Urine Urobilinogen 4.0, Ur Leukocyte Esterase 2+ H, Urine WBC 5-10, Amorphous Sediment TRACE, Urine Glucose NEGATIVE 05/04/1799: Sodium 137, Potassium 3.3 L, Chloride 102, Carbon Dioxide 25, BUN 15, Creatinine 0.8, Estimated Creat Clear 63, Estimated GFR (MDRD) 70, Glucose 124 H, Calcium 8.3 L, Total Bilirubin 0.8, AST 20, ALT 15, Alkaline Phosphatase 99, Total Protein 8.1, Albumin 2.9 L, Globulin 5.2 H, Albumin/Globulin Ratio 0.6 L, Amylase 60, Lipase 82, WBC 17.6 H, RBC 4.09 L, Hgb 12.1 L, Hct 36.0 L, MCV 88.1, RDW 13.4, Plt Count 365, MPV 7.2 L, Gran % 89.1 H, Gran # 15.7 H, Total Counted 100, Lymphocytes % 7.4 L, Monocytes % 3.0, Eosinophils % 0.4, Basophils % 0.2, Neutrophils 83 H, Band Neutrophils 12 H, Lymphocytes (Manual) 5 L, Lymphocytes # 1.3, Monocytes # 0.5, Eosinophils # 0.1, Basophils # 0.0, Platelet Estimate NORMAL, Polychromasia SL., Rouleaux 1+, PUBS MCHC 33.6, MCH 29.6 Microbiology 05/04 250 BLOOD: Anaerobic Blood Culture - RECD 05/04 250 BLOOD: Aerobic Blood Culture - RECD 05/04 250 BLOOD: Anaerobic Blood Culture - RECD 05/04 250 BLOOD: Aerobic Blood Culture - RECD 05/04 105 URINE CC: Urine Culture - RECD Admission vital signs: 1ST Vital Signs Result Date Time Pulse Ox 98 05/04 44 B/P 145/81 05/04 44 Temp 98.5 05/04 44 Pulse 88 05/04 44 Resp 18 05/04 44 O2 Delivery ROOM AIR 05/04 042 Exam General appearance: normal appearance, alert, awake Eyes: normal exam, anicteric Neck: normal inspection, non-tender, no carotid bruit, no JVD Cardiovascular: normal sinus rhythm, 3/6 systolic ejection murmur Respiratory: normal exam, clear to auscultation ABD: tenderness, slight swelling in the left lower quadrant with tenderness, no rebound or rigidity Extremities: normal exam Musculoskeletal: normal exam Skin: normal exam, intact, normal color Neuro: normal exam, alert, no deficit Plan: Problem List 1. Colitis Plan: IV Invanz. Surgical consultation. Anticipate medical therapy with redo CT scan on Saturday. Advance diet very cautiously. at 0851
--- NOTE | 2017-05-04 09:13 | CONSULT NOTE ---
Standard Demographics Patient Demo Date of Consultation: 05/04/17 Referring Provider: Danny Carlson MD Reason for Consultation: colitis / history of diverticulitis PRIMARY DIAGNOSIS: COLITIS Allergies: Coded Allergies: levofloxacin (From LEVAQUIN) (05/04/17) History of Present Illness Chief Complaint: abdominal pain History of Present Illness: This is a 76-year-old female seen in consultation from Dr. Carlson for evaluation regarding colitis and history of diverticulitis. The patient recently developed pain within the lower abdomen that she describes as "gassy and bloating". Occasional "sharp" exacerbations. Severity moderate. She did develop an episode of fever and presented to the emergency department where a CT scan revealed signs and changes consistent with colitis (versus complex diverticulitis) and possible "evolving abscess" in the cul-de-sac. She does have a history of diverticulosis and an episode of diverticulitis in 2009 that required admission. She was treated medically and improved. Recommendations for colonoscopy were made; however, this procedure did not occur. She has had one dose of Invanz and states she "feels much better right now". Past Medical History Reports: hypertension. Surgical History Previous Surgery?Y D & C Gallbladd Allergies Coded Allergies: levofloxacin (From LEVAQUIN) (05/04/17) Medications: Reported Medications ATENOLOL (Atenolol 50MG) 50 MG PO BID Aspirin (Aspirin, Chewable) 81 MG PO DAILY LEVOTHYROXINE SOD (Synthroid) (Unknown Dose) PO DAILY Carvedilol (Carvedilol 25MG) 25 MG PO BID Family history Postive for: HTN. Smoking Hx Tobacco: No Smoker: Never Smoker Type: N/A Packs/day: N/A Are you/the child exposed to second-hand smoke: No Alcohol Alcohol: No Hx of Drug Use Drug Use? No Review of Systems Constitutional No: recent weight loss. Skin No: bruising. Respiratory No: pneumonia. Cardiovascular No: palpitations. GI No: hematemeis, hematochezia, melena, nausea, vomitting. (female) No: hematuria. Heme No: bleeding. Neurological No: change in LOC, confusion. Psychiatric No: anxious. Physical Exam VS/I&O Vital Signs Date Time Temp Pulse Resp B/P Pulse O2 O2 Flow FiO2 Ox Delivery Rate 05/04 830 98.2 72 18 112/59 94 05/04 0822 18 05/04 0721 98.2 72 18 112/59 94 ROOM AIR 05/04 0541 99.8 05/04 0445 83 05/04 0445 94 ROOM AIR 05/04 0430 100.1 83 18 140/45 05/04 0422 100.1 83 18 140/45 94 ROOM AIR 05/04 0418 20 05/04 0353 100.3 78 20 147/74 94 05/04 0311 100.3 78 20 147/74 94 05/04 0234 87 20 160/76 93 05/04 0155 100.6 87 18 149/75 93 05/04 0044 98.5 88 18 145/81 98 I&O 05/04 0700 Intake Total Output Total Balance Patient 66.424 kg Weight Exam General appearance no acute distress Respiratory no distress Cardiovascular regular rate and rhythm Abdomen soft (mild to mod TTP in lower abd) Findings/Data CT A/P - severe sigmoid thickening with some inflammation of the adjacent small bowel. Diverticulosis confirmed. A 4 cm fluid collection in the cul-de-sac of indeterminate with regard to abscess. Plan Plan: Impression: Colitis (versus complex diverticulitis)- improving after 1 dose of Invanz Diverticulosis with history of diverticulitis Plan: Continue antibiotics Serial abdominal exams Very slow advancement of diet Agree with plan to repeat CT scan in 2-5 days Colonoscopy in ~6 weeks (unless acutely needed prior) at 0920
[2017-05-04] MEDS ORDERED: CARVEDILOL 1212.5 MG PO (11:39)
[2017-05-04] MEDS ORDERED: LEVOTHYROXIN0.088 MG PO (11:40)
--- NOTE | 2017-05-04 14:39 | PHARMACY CLINIC NOTE ---
Patient Demographics Patient Demographics Admission date: 05/04/17 Date: 05/04/17 Time: 1439 Allergies Coded Allergies: levofloxacin (From LEVAQUIN) (05/04/17) HEIGHT- FT: 5 IN: 0.00 K.424 VTE General Information Labs: Laboratory Tests 05/04 0100 Hematology Hgb (12.2 - 16.2 g/dL) 12.1 L Hct (37.0 - 47.0 %) 36.0 L Plt Count (142 - 424 K/mm3) 365 Disclaimer The following section includes nursing documentation that has been pulled in for pharmacy review. Patient's VTE score: 1 Patient's VTE Risk: VERY LOW RISK Clinical trial participant? No VTE prophylaxis NQF [id number] VTE prophylaxis ordered? Yes Type of prophylaxis/treatment: EDSON at 2908
[2017-05-05 03:54] VITALS: BP 136/52
[2017-05-05 06:24] LABS: LYMPH # 1.9 K/mm3 (0.7-4.5); LYMPH % 9.1 % (10-50.0)
[2017-05-05 06:27] LABS: HEMOGLOBIN 9.8 g/dL (12.2-16.2)
[2017-05-05 06:39] LABS: NEUTROPHILS 84 % (42-76)
[2017-05-05 07:18] VITALS: BP 154/65
--- NOTE | 2017-05-05 08:49 | ACUTE CARE PROGRESS NOTE (QUA) ---
Progress Notes Subjective Date 05/05/17 Time 0848 Note Overall patient feels slightly better. A little short of breath when getting up to go to the bathroom, but has been urinating quite a bit. Has had 3 bowel movements that were painless, without blood or mucus through the night. Patient's pleasant, alert. Lungs are clear, heart rate regular. Abdomen is soft, much less tenderness in the LEFT lower quadrant. Objective Findings Laboratory Tests 05/05/17 0600: Sodium 139, Potassium 3.6, Chloride 105, Carbon Dioxide 26, BUN 16, Creatinine 0.8, Estimated Creat Clear 64, Estimated GFR (MDRD) 70, Glucose 100, Calcium 8.4 L, WBC 20.3 *H, RBC 3.32 L, Hgb 9.8 L, Hct 29.7 L, MCV 89.6, RDW 13.3, Plt Count 311, MPV 7.3 L, Gran % 86.3 H, Gran # 17.5 H, Total Counted 100, Lymphocytes % 9.1 L, Monocytes % 3.8, Eosinophils % 0.6, Basophils % 0.2, Neutrophils 84 H, Band Neutrophils 9 H, Lymphocytes (Manual) 5 L, Lymphocytes # 1.9, Monocytes (Manual) 2, Monocytes # 0.8, Eosinophils # 0.1, Basophils # 0.0 , Platelet Estimate NORMAL, Polychromasia SL., Rouleaux 1+, PUBS MCHC 33.0, MCH 29.6 Last VS-Temp:99.20 B/P:154/65 Pulse:78 Resp:18 SaO2:94 ROOM AIR Last weight lbs:146 oz:7 [id number] Method:Bed Scales Assessment/Plan Problem List 1. Colitis Patient condition Improving, increased leukocytosis is concerning but her clinical picture otherwise is reassuring. Plan to continue current antibiotic therapy. Saline lock IV fluids. Continue clear liquid diet. CT scan tomorrow morning to assess progress of colitis/possible abscess issues. Watch blood counts and leukocytosis tomorrow. This inpt stay is expected to cross 2 MNs from start of care Yes at 0849
[2017-05-05 08:53] VITALS: BP 154/65
--- NOTE | 2017-05-05 09:28 | SURGEON PROGRESS NOTE ---
Subjective data Subjective data: Feels "fine". Less pain this AM. Objective data Vitals,I&O,and Labs: Vital signs, intake and output,and available lab data for the last 24 hours is as noted below. Vital Signs Date Time Temp Pulse Resp B/P Pulse O2 O2 Flow FiO2 Ox Delivery Rate 05/05 0853 99.2 78 18 154/65 94 05/05 0718 99.2 78 18 154/65 94 ROOM AIR 05/05 0354 98.6 78 16 136/52 94 ROOM AIR 05/04 1940 98.6 79 18 148/52 95 05/04 1937 98.6 79 18 148/52 95 ROOM AIR 05/04 1541 99.0 81 18 139/58 93 ROOM AIR 05/04 1412 18 05/04 1500 05/04 2300 05/05 07 Intake Total 60 360 856 Output Total Balance 60 360 856 Intake, IV 856 Intake, Oral 60 360 Output, Stool Laboratory Tests Test Result Date Time Chemistry Sodium (mmoL/L) 139 05/05 600 Potassium (mmoL/L) 3.6 05/05 600 Chloride (mmoL/L) 105 05/05 600 Carbon Dioxide (mmoL/L) 26 05/05 600 BUN (mg/dL) 16 05/05 600 Creatinine (mg/dL) 0.8 05/05 600 Estimated Creat Clear (ML/MIN) 64 05/05 600 Estimated GFR (MDRD) (ML/MIN) 70 05/05 600 Glucose (mg/dL) 100 05/05 600 Lactic Acid (mmol/L) 0.9 05/04 025 Calcium (mg/dL) 8.4 05/05 600 Total Bilirubin (mg/dL) 0.8 05/04 100 AST (U/L) 20 05/04 100 ALT (U/L) 15 05/04 100 Alkaline Phosphatase (U/L) 99 05/04 100 Total Protein (gm/dL) 8.1 05/04 100 Albumin (gm/dL) 2.9 05/04 100 Globulin (gm/dL) 5.2 05/04 100 Albumin/Globulin Ratio 0.6 05/04 100 Amylase (U/L) 60 05/04 100 Lipase (U/L) 82 05/04 100 Hematology WBC (K/MM3) 20.3 05/05 600 RBC (M/mm3) 3.32 05/05 600 Hgb (g/dL) 9.8 05/05 600 Hct (%) 29.7 05/05 600 MCV (fl) 89.6 05/05 600 RDW (%) 13.3 05/05 600 Plt Count (K/mm3) 311 05/05 600 MPV (fl) 7.3 05/05 600 Gran % (%) 86.3 05/05 600 Gran # (K/mm3) 17.5 05/05 600 Total Counted (#CELLS) 100 05/05 600 Lymphocytes % (%) 9.1 05/05 600 Monocytes % (%) 3.8 05/05 600 Eosinophils % (%) 0.6 05/05 600 Basophils % (%) 0.2 05/05 600 Neutrophils (%) 84 05/05 600 Band Neutrophils (%) 9 05/05 600 Lymphocytes (Manual) (%) 5 05/05 600 Lymphocytes # (K/mm3) 1.9 05/05 600 Monocytes (Manual) (%) 2 05/05 600 Monocytes # (K/mm3) 0.8 05/05 600 Eosinophils # (K/mm3) 0.1 05/05 600 Basophils # (K/MM3) 0.0 05/05 600 Platelet Estimate NORMAL 05/05 600 Polychromasia SL. 05/05 600 Rouleaux 1+ 05/05 600 PUBS MCHC (g/dl) 33.0 05/05 600 Immunology MCH (pg) 29.6 05/05 600 Urines Urine Color YELLOW 05/04 105 Urine Appearance CLOUDY 05/04 105 Urine pH 6.0 05/04 105 Ur Specific [place] 1.020 05/04 105 Urine Protein (mg/dL) TRACE 05/04 105 Urine Ketones (mg/dL) TRACE 05/04 105 Urine Blood NEGATIVE 05/04 105 Urine Nitrate NEGATIVE 05/04 105 Urine Bilirubin NEGATIVE 05/04 105 Urine Urobilinogen (E.U./dL) 4.0 05/04 105 Ur Leukocyte Esterase 2+ 05/04 105 Urine WBC (wbc/hpf) 5-10 05/04 105 Amorphous Sediment TRACE 05/04 105 Urine Glucose NEGATIVE 05/04 105 Assessment findings Assessment Exam General appearance: no acute distress Cardiovascular: regular rate & rhythm Respiratory: no respiratory distress ABD: soft (less TTP) Patient plan Diagnoses: Severe colitis versus complex diverticulitis - subjectively improving in terms of pain and objectively improving in terms of exam Leukocytosis - slightly worse this a.m. Plan: Antibiotics Additional data: Flagyl will be added to improve anaerobic coverage CT scan with additional contrast has been ordered for tomorrow at 0996
[2017-05-05 15:51] VITALS: BP 120/54
[2017-05-05 20:09] VITALS: BP 170/64
[2017-05-05 20:30] VITALS: BP 170/64
[2017-05-06 03:51] VITALS: BP 164/64
[2017-05-06 07:45] LABS: HEMOGLOBIN 9.9 g/dL (12.2-16.2); LYMPH # 1.7 K/mm3 (0.7-4.5); LYMPH % 11.4 % (10-50.0)
[2017-05-06 08:00] VITALS: BP 183/75
[2017-05-06 08:11] VITALS: BP 164/64
--- NOTE | 2017-05-06 08:22 | ACUTE CARE PROGRESS NOTE (QUA) ---
Progress Notes Subjective Date 05/06/17 Time 0821 Note Patient overall feels better. Less pain, no vomiting, no nausea. Patient is alert, pleasant, talkative, lungs are clear, heart murmur unchanged. Abdomen is soft with no significant tenderness. Leukocytosis is improving nicely. Objective Findings Last VS-Temp:98.6 B/P:164/64 Pulse:78 Resp:16 SaO2:94 ROOM AIR Last weight lbs:146 oz:7 [id number] Method:Bed Scales Assessment/Plan Problem List 1. Colitis Patient condition Improving Plan: continue current care, repeat CT scan today. This inpt stay is expected to cross 2 MNs from start of care Yes at 0822
--- NOTE | 2017-05-06 08:27 | SURGEON PROGRESS NOTE ---
Subjective data Subjective data: Feels "fine" this AM. Objective data Vitals,I&O,and Labs: Vital signs, intake and output,and available lab data for the last 24 hours is as noted below. Vital Signs Date Time Temp Pulse Resp B/P Pulse O2 O2 Flow FiO2 Ox Delivery Rate 05/06 0811 98.6 78 16 164/64 94 05/06 0351 98.6 78 16 164/64 94 ROOM AIR 05/05 2030 98.7 81 20 170/64 94 05/05 2009 98.7 81 20 170/64 94 ROOM AIR 05/05 1551 98.1 80 18 120/54 92 ROOM AIR 05/05 0853 99.2 78 18 154/65 94 05/05 1500 05/05 2300 05/06 0700 Intake Total 720 470 250 Output Total Balance 720 470 250 Intake, IV 230 250 Intake, Oral 720 240 Output, Stool Laboratory Tests Test Result Date Time Chemistry Sodium (mmoL/L) 139 05/06 0625 Potassium (mmoL/L) 2.7 05/06 06 Chloride (mmoL/L) 105 05/06 0625 Carbon Dioxide (mmoL/L) 25 05/06 0625 BUN (mg/dL) 15 05/06 0625 Creatinine (mg/dL) 0.7 05/06 625 Estimated Creat Clear (ML/MIN) 73 05/06 06 Estimated GFR (MDRD) (ML/MIN) 82 05/06 0625 Glucose (mg/dL) 90 05/06 0625 Lactic Acid (mmol/L) 0.9 05/04 025 Calcium (mg/dL) 8.4 05/06 625 Total Bilirubin (mg/dL) 0.5 05/06 625 AST (U/L) 12 05/06 0625 ALT (U/L) 11 05/06 625 Alkaline Phosphatase (U/L) 87 05/06 06 Total Protein (gm/dL) 6.7 05/06 625 Albumin (gm/dL) 2.2 05/06 625 Globulin (gm/dL) 4.5 05/06 625 Albumin/Globulin Ratio 0.5 05/06 625 Amylase (U/L) 60 05/04 010 Lipase (U/L) 82 05/04 010 Hematology WBC (K/MM3) 16.5 05/06 625 RBC (M/mm3) 3.29 05/06 625 Hgb (g/dL) 9.9 05/06 625 Hct (%) 30.4 05/06 625 MCV (fl) 92.4 05/06 625 RDW (%) 13.4 05/06 625 Plt Count (K/mm3) 363 05/06 625 MPV (fl) 8.5 05/06 625 Gran % (%) 83.4 05/06 625 Gran # (K/mm3) 13.7 05/06 625 Total Counted (#CELLS) 100 05/05 600 Lymphocytes % (%) 11.4 05/06 625 Monocytes % (%) 4.5 05/06 625 Eosinophils % (%) 1.4 05/06 625 Basophils % (%) 0.3 05/06 625 Neutrophils (%) 84 05/05 600 Band Neutrophils (%) 9 05/05 600 Lymphocytes (Manual) (%) 5 05/05 600 Lymphocytes # (K/mm3) 1.7 05/06 625 Monocytes (Manual) (%) 2 05/05 600 Monocytes # (K/mm3) 0.7 05/06 625 Eosinophils # (K/mm3) 0.2 05/06 625 Basophils # (K/MM3) 0.0 05/06 625 Platelet Estimate NORMAL 05/05 600 Polychromasia SL. 05/05 600 Rouleaux 1+ 05/05 600 PUBS MCHC (g/dl) 32.5 05/06 625 Immunology MCH (pg) 30.0 05/06 625 Urines Urine Color YELLOW 05/04 105 Urine Appearance CLOUDY 05/04 105 Urine pH 6.0 05/04 105 Ur Specific [place] 1.020 05/04 105 Urine Protein (mg/dL) TRACE 05/04 105 Urine Ketones (mg/dL) TRACE 05/04 105 Urine Blood NEGATIVE 05/04 105 Urine Nitrate NEGATIVE 05/04 105 Urine Bilirubin NEGATIVE 05/04 105 Urine Urobilinogen (E.U./dL) 4.0 05/04 105 Ur Leukocyte Esterase 2+ 05/04 105 Urine WBC (wbc/hpf) 5-10 05/04 105 Amorphous Sediment TRACE 05/04 105 Urine Glucose NEGATIVE 05/04 105 Assessment findings Assessment Exam General appearance: no acute distress Cardiovascular: regular rate & rhythm Respiratory: no respiratory distress ABD: soft (minimal TTP (improved)) Patient plan Diagnoses: Severe colitis versus "long segment" diverticulitis - clinically improving on antibiotics Leukocytosis - improved Plan: Antibiotics, follow-up pending CT scan at 2688
[2017-05-06 09:48] LABS: NEUTROPHILS 79 % (42-76)
--- NOTE | 2017-05-06 12:56 | RADIOLOGY REPORT PS360 ---
CT ABD PELVIS W/ CONTRAST HISTORY: COLITIS/ ? ABSCESS Patient Age: 76 years: Female Ordering Physician: Danny Carlson MD TECHNIQUE: Helical CT scanning performed the abdomen and pelvis following 75 cc [id number]. Diluted Gastroview enteric contrast also utilized COMPARISON :CT abdomen pelvis 05/04/2017 without contrast FINDINGS Pronounced, severe wall thickening throughout rectosigmoid and sigmoid colon with prominent associated inflammation throughout the pelvis. . progressive fluid collection and enlargement of the fluid collection seen at the cul-de-sac slightly left of midline. This now measures up to 5.4 cm x 3.5 cm. Thin mild enhancing margin may reflect a walled off fluid collection possibly early abscess however wall is relatively thin for such at the cul-de-sac. This cul-de-sac fluid collection has a thin neck which extends anteriorly just along superior margin the uterus ( sagittal image 44 axial image 93). And then turns leftward towards a separate inflammatory focus left lower quadrant left adnexal region.. At the left lower quadrant,/ left adnexal region we see mixed density fluid collection surrounding what most likely inflamed loop of bowel.. Although tend to favor this as redundant loop of sigmoid colon which dips into this region, it does not contain the oral contrast seen in all other segments of large bowel including the adjacent thickened sigmoid colon.. Thus I cannot exclude totally exclude a loop of small bowel in this area. & Less likely tract leading from the inflamed colon area , but favor this most likely loop of redundant sigmoid This region is nicely seen on coronal image 34-36 . Measures 5 cm AP xup to 4.5 cm transverse maximallyx nearly 4 cm height. This is more likely a phlegmon type feature/possible early abscess however relatively thin wall laterally. . There is also some wispy inflammation extending anteriorly from this latter region & extending into the overlying fat le LLQ. (Sagittal image 60. Axial image 90 ,91 ). Less pronounced diffuse Edematous changes inferior mesentery and omentum here at the pelvis and lower abdomen. Most pronounced about the thickened sigmoid The liquid stool from the Gastroview contrast is seen throughout the colon with multiple air-fluid levels within nondilated large bowel.. Appendix and terminal ileum appear normal small bowel normal caliber. No dilatation or obstruction.. Uterus.. New Fluid Collection is seen within the endometrial cavity. 2.8 cm transverse 1.5 cm AP 4.2 cm length. -This become evident since prior study. Requires correlation. Is there a vaginal discharge associated?. Likely mild Diffuse wall thickening urinary bladder, accentuated by its\contracted state Lung bases. Dependent basilar atelectasis. Mild cardiomegaly. . A small slight hiatal hernia noted Upper abdomen appears satisfactory Liver, spleen, pancreas unremarkable. Cholecystectomy. Right kidney there is larger than the left similar to 2010 . Nonobstructive punctate calculus upper pole right kidney 4 x 5 mm size IMPRESSION: Severe wall thickening throughout inflamed appearing sigmoid colon& rectosigmoid again evident, as on 05/04/2017 CT. Colonic diverticulosis with inflammation and fat stranding associated Progressive fluid collection at cul-de-sac - now measuring up to 5 cm transverse. Thin Neck from this cul-de-sac fluid collection passes over the uterus & can be leading to a left pelvic inflammatory fluid collection . The second area fluid collection measures up to 5 cm AP. This 2nd fluid or phlegmon / early abscess collection seems to be surrounding a loop of bowel here at left pelvis.-Suspect more likely loop inflamed redundant sigmoid colon, although cannot exclude small bowel loop. . Notable increased fluid now seen at the endometrial cavity since prior study. Does patient have vaginal drainage/discharge associated? .
[2017-05-06 15:52] VITALS: BP 162/72
[2017-05-06 19:39] VITALS: BP 155/67
[2017-05-06 21:30] VITALS: BP 155/67
[2017-05-07 03:46] VITALS: BP 165/71
[2017-05-07 07:00] LABS: HEMOGLOBIN 9.7 g/dL (12.2-16.2); LYMPH % 13.1 % (10-50.0)
[2017-05-07 08:13] VITALS: BP 168/70
--- NOTE | 2017-05-07 08:28 | SURGEON PROGRESS NOTE ---
Subjective data Subjective data: No pain. Objective data Vitals,I&O,and Labs: Vital signs, intake and output,and available lab data for the last 24 hours is as noted below. Vital Signs Date Time Temp Pulse Resp B/P Pulse O2 O2 Flow FiO2 Ox Delivery Rate 05/07 0820 97.4 78 18 168/70 93 05/07 0813 97.4 78 18 168/70 93 ROOM AIR 05/07 0346 98.1 73 20 165/71 96 ROOM AIR 05/06 2130 98.3 79 18 155/67 95 05/06 1939 98.3 79 18 155/67 95 ROOM AIR 05/06 1552 97.8 79 16 162/72 94 ROOM AIR 05/06 1500 05/06 2300 05/07 0700 Intake Total 360 Output Total Balance 360 Intake, Oral 360 Output, Stool Patient 66.424 kg Weight Laboratory Tests Test Result Date Time Chemistry Sodium (mmoL/L) 140 05/07 633 Potassium (mmoL/L) 3.1 05/07 633 Chloride (mmoL/L) 105 05/07 633 Carbon Dioxide (mmoL/L) 29 05/07 633 BUN (mg/dL) 15 05/07 633 Creatinine (mg/dL) 0.7 05/07 633 Estimated Creat Clear (ML/MIN) 73 05/07 633 Estimated GFR (MDRD) (ML/MIN) 82 05/07 633 Glucose (mg/dL) 92 05/07 633 Lactic Acid (mmol/L) 0.9 05/04 025 Calcium (mg/dL) 8.4 05/07 633 Total Bilirubin (mg/dL) 0.4 05/07 633 AST (U/L) 12 05/07 633 ALT (U/L) 11 05/07 633 Alkaline Phosphatase (U/L) 85 05/07 633 Total Protein (gm/dL) 6.7 05/07 633 Albumin (gm/dL) 2.2 05/07 633 Globulin (gm/dL) 4.5 05/07 633 Albumin/Globulin Ratio 0.5 05/07 633 Amylase (U/L) 60 05/04 100 Lipase (U/L) 82 05/04 010 Hematology WBC (K/MM3) 15.3 05/07 633 RBC (M/mm3) 3.26 05/07 633 Hgb (g/dL) 9.7 05/07 633 Hct (%) 29.0 05/07 633 MCV (fl) 89.0 05/07 633 RDW (%) 13.3 05/07 633 Plt Count (K/mm3) 420 05/07 633 MPV (fl) 7.2 05/07 633 Gran % (%) 78.7 05/07 633 Gran # (K/mm3) 12.0 05/07 633 Total Counted (#CELLS) 100 05/06 625 Lymphocytes % (%) 13.1 05/07 633 Monocytes % (%) 5.7 05/07 633 Eosinophils % (%) 2.1 05/07 633 Basophils % (%) 0.3 05/07 633 Neutrophils (%) 79 05/06 625 Band Neutrophils (%) 9 05/05 600 Lymphocytes (Manual) (%) 12 05/06 625 Lymphocytes # (K/mm3) 2.0 05/07 633 Monocytes (Manual) (%) 6 05/06 625 Monocytes # (K/mm3) 0.9 05/07 633 Eosinophils # (K/mm3) 0.3 05/07 633 Eosinophils # (Manual) (%) 2 05/06 625 Basophils # (K/MM3) 0.1 05/07 633 Atypical Lymphocytes (%) 1 05/06 625 Platelet Estimate NORMAL 05/06 625 Polychromasia SL. 05/05 600 Rouleaux 1+ 05/05 600 PUBS MCHC (g/dl) 33.4 05/07 633 Immunology MCH (pg) 29.7 05/07 633 Urines Urine Color YELLOW 05/04 105 Urine Appearance CLOUDY 05/04 105 Urine pH 6.0 05/04 105 Ur Specific [place] 1.020 05/04 105 Urine Protein (mg/dL) TRACE 05/04 105 Urine Ketones (mg/dL) TRACE 05/04 105 Urine Blood NEGATIVE 05/04 105 Urine Nitrate NEGATIVE 05/04 105 Urine Bilirubin NEGATIVE 05/04 105 Urine Urobilinogen (E.U./dL) 4.0 05/04 105 Ur Leukocyte Esterase 2+ 05/04 105 Urine WBC (wbc/hpf) 5-10 05/04 105 Amorphous Sediment TRACE 05/04 105 Urine Glucose NEGATIVE 05/04 105 Additional data: CT scan from yesterday shows slight increase in fluid, but no significant changes Assessment findings Assessment Exam General appearance: normal appearance Cardiovascular: regular rate & rhythm Respiratory: no respiratory distress ABD: soft (no significant TTP) Patient plan Diagnoses: Colitis vs. complex diverticulitis -- Improving clinically on IV abx Plan: Ambulate, Antibiotics Additional data: Agree with PICC for possible outpatient IV abx at 0828
--- NOTE | 2017-05-07 08:29 | ACUTE CARE PROGRESS NOTE (QUA) ---
Progress Notes Subjective Date 05/07/17 Time 0745 Note Patient reports significant improvement of abdominal pain. She is tolerating full liquid diet without nausea or increase in pain. She reports some shortness of breath which has started since her admission. She denies cough, congestion or ENT symptoms. No fevers. Alert and oriented x3. Rate and rhythm regular. 3/6 holosystolic murmur noted. Wheezing noted throughout all lung blake. No LE edema. Pulses 2+ bilaterally. Abdomen mildly distended, soft. Mild LLQ tenderness, no rebound. Patient/family reports: feeling better Nursing reports: no complaints Objective Findings Last VS-Temp:97.4 B/P:168/70 Pulse:78 Resp:18 SaO2:93 ROOM AIR Last weight lbs:146 oz:7 K.[id number] Method:Bed Scales Reviewed: medications, vital signs, lab results, radiology report Assessment/Plan Problem List 1. Colitis Assessment/Plan: Improving. WBC down to 15.3. Continue Flagyl and Invanz. Place PICC line today for ongoing antibiotics. 2. Shortness of breath Assessment/Plan: Wheezing noted on exam. No history of lung disease or tobacco use. Start albuterol neb treatments. Obtain CXR to evaluate for underlying pathology. 3. Hypokalemia Assessment/Plan: K 3.1. Oral potassium replacement today. Will recheck in the am. Patient condition Improving Plan: continue current care This inpt stay is expected to cross 2 MNs from start of care Yes at 0887
--- NOTE | 2017-05-07 09:41 | ACUTE CARE PROGRESS NOTE (QUA) ---
Progress Notes Subjective Date 05/07/17 Time 0940 Assessment/Plan Problem List 1. Colitis 2. Shortness of breath 3. Hypokalemia This inpt stay is expected to cross 2 MNs from start of care Yes Antibiotic Stewardship (2) Current Culture Results Microbiology 05/04 250 BLOOD: Anaerobic Blood Culture - RES 05/04 250 BLOOD: Aerobic Blood Culture - RES 05/04 105 URINE CC: Urine Culture - COMP Infxn that will respond? Yes (WBC DECREASING) Right drug,dose,and route? Yes More targeted antbx? No at 0941
[2017-05-07 10:05] LABS: NEUTROPHILS 81 % (42-76)
--- NOTE | 2017-05-07 11:28 | RADIOLOGY REPORT PS360 ---
CHEST(2 VIEWS-NOT PORTABLE) HISTORY: shortness of breath/wheezing ORDERING PHYSICIAN: Danny Carlson MD PATIENT AGE: 76 years COMPARISON: None available FINDINGS: Mild cardiomegaly without failure. Patchy density is present in the right suprahilar and infrahilar region may be due to an area of atelectasis and/or infiltrate. No previous studies available for comparison. The left lung is clear. There is a right upper extremity PICC line present with the tip not visible on the film but directed towards the neck. IMPRESSION: 1. PICC line directed in the neck 2. Right perihilar atelectasis/infiltrate
--- NOTE | 2017-05-07 12:33 | RADIOLOGY REPORT PS360 ---
CHEST PORTABLE-PICC PLACEMENT CLINICAL INDICATION: PICC LINE ADJUSTMENT ORDERING PHYSICIAN: Danny Carlson MD PATIENT AGE: 76 years COMPARISON: 05/07/2017 FINDINGS: The PICC line now is in good position with the tip in the region superior vena cava. Right perihilar atelectatic changes have improved. There is fullness of the right hilum. There are no old radiographs available for comparison. Mild cardiomegaly. IMPRESSION: 1. PICC line in good position. 2. Fullness of the right hilum
[2017-05-07 15:27] VITALS: BP 154/77
[2017-05-07 16:15] LABS: CORONAVIRUS 229E NOT DETECTED (NOT DETECTE); CORONAVIRUS HKU 1 NOT DETECTED (NOT DETECTE); CORONAVIRUS NL63 NOT DETECTED (NOT DETECTE); CORONAVIRUS OC43 NOT DETECTED (NOT DETECTE); RHINOVIRUS/ENTEROVIRUS NOT DETECTED (NOT DETECTE)
[2017-05-07 19:50] VITALS: BP 165/78
[2017-05-07 20:23] VITALS: BP 165/78
[2017-05-08 04:30] VITALS: BP 147/74
[2017-05-08 07:26] LABS: LYMPH # 2.1 K/mm3 (0.7-4.5); LYMPH % 11.2 % (10-50.0)
[2017-05-08 07:53] VITALS: BP 159/72
--- NOTE | 2017-05-08 07:58 | ACUTE CARE PROGRESS NOTE (QUA) ---
Progress Notes Subjective Date 05/08/17 Time 0756 Patient/family reports: feeling better, no complaints Nursing reports: alert, no complaints Objective Findings Last VS-Temp:97.9 B/P:159/72 Pulse:78 Resp:18 SaO2:95 ROOM AIR Last weight lbs:146 oz:7 K.[id number] Method:Bed Scales Exam General appearance: normal appearance, alert Eyes: normal exam, anicteric ENT: normal exam, mucous membranes moist Neck: normal inspection, non-tender Cardiovascular: normal exam, normal sinus rhythm, PMI normal Respiratory: normal exam, aerating well ABD: soft, no tenderness Extremities: normal exam, full range of motion Musculoskeletal: normal exam, equal muscle strength Assessment/Plan Problem List 1. Colitis 2. Shortness of breath 3. Hypokalemia Patient condition Improving Plan: continue current care, initiate discharge plan This inpt stay is expected to cross 2 MNs from start of care Yes at 0753
--- NOTE | 2017-05-08 08:00 | DISCHARGE SUMMARY STANDARD ---
Demographics Admit date: 05/04/17 Discharge date: 05/08/17 History of present illness History of present illness 76-year-old white female with history of diverticulitis/diverticulosis in the past, admitted in 2009 with medical therapy. Apparently colonoscopy had been planned on discharge but for some reason this was never accomplished. Patient has been doing well but 3 days ago noted some swelling in her abdomen and felt that she had "gas" and was busy taking her to dialysis and did not come to the office. Pain got worse, she had a fever, came to the emergency department and CT scan revealed colitis, significant thickening and a possible microabscess in the sigmoid area. She is admitted to hospital for IV antibiotics. This morning she ought feels better with IV fluids and one dose of intravenous Invanz. Hospital Course Hospital Course: Patient was admitted, started on intravenous Invanz and Flagyl. She tolerated this well and abdominal pain resolved. Leukocytosis improved in a stepwise fashion. Patient's abdominal exam also improved in a stepwise fashion. Surgery was consulted. Appreciate input. Repeat CAT scan showed maturing yet questionable etiology of extracolonic fluid, but no evidence of abscess or perforation or air. Given patient's clinical improvement it was decided to continue medical therapy with IV antibiotics and observation. The patient did have an acute bronchitis, viral PCR testing negative, treated with azithromycin with good improvement. This morning exam improved and she will be discharged home, she will need 2 weeks of intravenous Invanz daily, close follow-up with surgery and with my office, and continued full liquid diet. Discharge diagnoses Problem List 1. Colitis 2. Shortness of breath 3. Hypokalemia Medications Medications: Discharge meds are as noted. Follow up Follow up in office in: 2 DAYS with: ZEN ANN MD at 3271
[2017-05-08] MEDS ORDERED: INVANZ1 G1 IM (08:02)
[2017-05-08 08:04] LABS: HEMOGLOBIN 10.8 g/dL (12.2-16.2)
--- NOTE | 2017-05-08 08:28 | SURGEON PROGRESS NOTE ---
Subjective data Subjective data: No pain. Objective data Vitals,I&O,and Labs: Vital signs, intake and output,and available lab data for the last 24 hours is as noted below. Vital Signs Date Time Temp Pulse Resp B/P Pulse O2 O2 Flow FiO2 Ox Delivery Rate 05/08 0753 97.9 78 18 159/72 95 ROOM AIR 05/08 0554 96 ROOM AIR 05/08 0430 98.2 89 18 147/74 92 ROOM AIR 05/07 2023 98.7 83 20 165/78 95 ROOM AIR 05/07 2016 93 ROOM AIR 05/07 1950 98.7 83 20 165/78 95 05/07 1527 98.4 83 22 154/77 95 ROOM AIR 05/07 0915 96 ROOM AIR 05/07 1500 05/07 2300 05/08 0700 Intake Total 480 480 Output Total 200 Balance 480 480 -200 Intake, Oral 480 480 Output, Stool Output, Urine 200 Laboratory Tests Test Result Date Time Chemistry Sodium (mmoL/L) 138 05/08 06 Potassium (mmoL/L) 3.1 05/08 06 Chloride (mmoL/L) 104 05/08 06 Carbon Dioxide (mmoL/L) 26 05/08 06 BUN (mg/dL) 15 05/08 630 Creatinine (mg/dL) 0.7 05/08 630 Estimated Creat Clear (ML/MIN) 73 05/08 630 Estimated GFR (MDRD) (ML/MIN) 82 05/08 06 Glucose (mg/dL) 100 05/08 630 Lactic Acid (mmol/L) 0.9 05/04 025 Calcium (mg/dL) 8.8 05/08 630 Total Bilirubin (mg/dL) 0.4 05/08 630 AST (U/L) 15 05/08 630 ALT (U/L) 12 05/08 630 Alkaline Phosphatase (U/L) 88 05/08 630 Total Protein (gm/dL) 7.4 05/08 630 Albumin (gm/dL) 2.5 05/08 630 Globulin (gm/dL) 4.9 05/08 630 Albumin/Globulin Ratio 0.5 05/08 630 Amylase (U/L) 60 05/04 010 Lipase (U/L) 82 05/04 100 Hematology WBC (K/MM3) 18.6 05/08 630 RBC (M/mm3) 3.62 05/08 630 Hgb (g/dL) 10.8 05/08 630 Hct (%) 32.7 05/08 630 MCV (fl) 90.1 05/08 630 RDW (%) 13.3 05/08 630 Plt Count (K/mm3) 508 05/08 630 MPV (fl) 7.6 05/08 630 Gran % (%) 79.7 05/08 630 Gran # (K/mm3) 14.9 05/08 630 Total Counted (#CELLS) 100 05/07 633 Lymphocytes % (%) 11.2 05/08 630 Monocytes % (%) 6.9 05/08 630 Eosinophils % (%) 1.8 05/08 630 Basophils % (%) 0.3 05/08 630 Neutrophils (%) 81 05/07 633 Band Neutrophils (%) 9 05/05 600 Lymphocytes (Manual) (%) 9 05/07 633 Lymphocytes # (K/mm3) 2.1 05/08 630 Monocytes (Manual) (%) 7 05/07 633 Monocytes # (K/mm3) 1.3 05/08 630 Eosinophils # (K/mm3) 0.3 05/08 630 Eosinophils # (Manual) (%) 3 05/07 633 Basophils # (K/MM3) 0.1 05/08 630 Atypical Lymphocytes (%) 1 05/06 625 Platelet Estimate NORMAL 05/07 633 Polychromasia SL. 05/05 600 Rouleaux 1+ 05/05 600 PUBS MCHC (g/dl) 32.8 05/08 630 Immunology MCH (pg) 29.5 05/08 630 Serology Chlamy pneum (TEM-PCR) NOT DETECTED 05/07 1610 Adenovirus (PCR) NOT DETECTED 05/07 1610 B. pertussis DNA (PCR) NOT DETECTED 05/07 1610 Coronavirus OC43 (PCR) NOT DETECTED 05/07 1610 Coronavirus HKU1 (PCR) NOT DETECTED 05/07 1610 Coronavirus 229E (PCR) NOT DETECTED 05/07 1610 Coronavirus NL63 (PCR) NOT DETECTED 05/07 1610 Human Metapneumovir PCR NOT DETECTED 05/07 1610 Influenza A (H1) PCR NOT DETECTED 05/07 1610 Influ A (H1N1/09) PCR NOT DETECTED 05/07 1610 Influenza A (H3) PCR NOT DETECTED 05/07 1610 Influenza Type A (PCR) NOT DETECTED 05/07 1610 Influenza Type B (PCR) NOT DETECTED 05/07 1610 M. pneumoniae (PCR) NOT DETECTED 05/07 1610 Parainfluenza 1 (PCR) NOT DETECTED 05/07 1610 Parainfluenza 2 (PCR) NOT DETECTED 05/07 1610 Parainfluenza 3 (PCR) NOT DETECTED 05/07 1610 Parainfluenza 4 (PCR) NOT DETECTED 05/07 1610 RSV (PCR) NOT DETECTED 05/07 1610 Entero/Rhino (PCR) NOT DETECTED 05/07 1610 Urines Urine Color YELLOW 05/04 105 Urine Appearance CLOUDY 05/04 105 Urine pH 6.0 05/04 105 Ur Specific [place] 1.020 05/04 105 Urine Protein (mg/dL) TRACE 05/04 105 Urine Ketones (mg/dL) TRACE 05/04 105 Urine Blood NEGATIVE 05/04 105 Urine Nitrate NEGATIVE 05/04 105 Urine Bilirubin NEGATIVE 05/04 105 Urine Urobilinogen (E.U./dL) 4.0 05/04 105 Ur Leukocyte Esterase 2+ 05/04 105 Urine WBC (wbc/hpf) 5-10 05/04 105 Amorphous Sediment TRACE 05/04 105 Urine Glucose NEGATIVE 05/04 105 Assessment findings Assessment Exam General appearance: normal appearance, no acute distress Cardiovascular: regular rate & rhythm Respiratory: no respiratory distress ABD: no rebound, soft, no tenderness, no guarding Patient plan Diagnoses: Complex colitis versus diverticulitis-clinically improving on antibiotics. Although her leukocytosis is slightly worsened today, she continues to remain afebrile and has been for multiple days. Plan: Antibiotics Additional data: The patient does not require urgent or immediate intervention (as she remains afebrile with stable normal vital signs and her exam continues to improve). Continue IV antibiotics per PICC. Okay with discharge with close outpatient follow-up. The patient understands the possibility of her condition worsening and states that she "know(s) what to watch for". She understands the possible need for radiographic drainage versus surgical intervention. at [id number]
[2017-05-08 08:54] VITALS: BP 159/72
[2017-05-08 10:58] VITALS: BP 159/72
== END 2017-05-08 09:45 | disposition home or self-care (01) | DRG 392 ==
LOC: ER 00:39 → 2ND 03:08
PROVIDERS: Emergency Medicine; Internal Medicine Adolescent Medicine
PROC: 05HD33Z Insertion of Infusion Device into Right Cephalic Vein, Percutaneous Approach (ICD-10-PCS; principal; 2017-05-07)
DX: K52.9 Noninfective gastroenteritis and colitis, unspecified (principal); K57.92 Diverticulitis of intestine, part unspecified, without perforation or abscess without bleeding; I10 Essential (primary) hypertension; E87.6 Hypokalemia
CPT/HCPCS: C1751; J0456; J1335; Q9967

== ENCOUNTER 2017-05-13 10:50 | Outpatient (CLI) | payer MEDICARE ==
[~2017-05-13 10:50] MED LIST changes: +CARVEDILOL 1212.5 MG PO; +CARVEDILOL 25MG25 MG PO; +INVANZ1 G1 IM; +LEVOTHYROXIN0.088 MG PO; +LEVOTHYROXINE0.1 MG PO
[2017-05-13 11:15] VITALS: BP 163/71
[2017-05-13 11:45] VITALS: BP 166/69
[2017-05-13 12:20] VITALS: BP 165/60
[2017-05-14] MEDS ORDERED: FUROSEMIDE40 MG PO (11:40)
== END 2017-05-13 12:20 | disposition home or self-care (01) ==
LOC: COP 10:50
DX: K57.92 Diverticulitis of intestine, part unspecified, without perforation or abscess without bleeding (principal)
CPT/HCPCS: J1335

== ENCOUNTER 2017-05-14 11:34 | Outpatient (CLI) | payer MEDICARE ==
[2017-05-14 11:37] VITALS: BP 147/72
[2017-05-14] MEDS ORDERED: FUROSEMIDE40 MG PO (11:40)
[2017-05-14 12:15] VITALS: BP 152/68
== END 2017-05-14 12:20 | disposition home or self-care (01) ==
LOC: COP 11:34
DX: K57.92 Diverticulitis of intestine, part unspecified, without perforation or abscess without bleeding (principal); Z45.2 Encounter for adjustment and management of vascular access device
CPT/HCPCS: J1335

== ENCOUNTER 2017-05-15 10:40 | Outpatient (CLI) | payer MEDICARE ==
[~2017-05-15 10:40] MED LIST changes: +FUROSEMIDE40 MG PO
[2017-05-15 11:17] VITALS: BP 156/63
[2017-05-15 11:38] VITALS: BP 150/59
== END 2017-05-15 11:50 | disposition home or self-care (01) ==
LOC: COP 10:40
DX: K57.92 Diverticulitis of intestine, part unspecified, without perforation or abscess without bleeding (principal); Z45.2 Encounter for adjustment and management of vascular access device
CPT/HCPCS: J1335

== ENCOUNTER 2017-05-16 10:40 | Outpatient (CLI) | payer MEDICARE ==
[2017-05-16 10:55] VITALS: BP 153/72
== END 2017-05-16 11:44 | disposition home or self-care (01) ==
LOC: COP 10:40
DX: K57.92 Diverticulitis of intestine, part unspecified, without perforation or abscess without bleeding (principal); Z45.2 Encounter for adjustment and management of vascular access device
CPT/HCPCS: J1335

== ENCOUNTER 2017-05-17 10:35 | Outpatient (CLI) | payer MEDICARE ==
[~2017-05-17] VITALS: Ht 152.4 cm; Wt 69.4 kg
[2017-05-17 10:55] VITALS: BP 154/56
[2017-05-17 11:30] VITALS: BP 159/58
== END 2017-05-17 11:45 | disposition home or self-care (01) ==
LOC: COP 10:35
DX: K57.92 Diverticulitis of intestine, part unspecified, without perforation or abscess without bleeding (principal); Z45.2 Encounter for adjustment and management of vascular access device
CPT/HCPCS: J1335

== ENCOUNTER 2017-05-18 08:43 | Outpatient (CLI) | payer MEDICARE ==
[2017-05-18 08:55] VITALS: BP 143/53
[2017-05-18 09:40] VITALS: BP 154/55
== END 2017-05-18 09:45 | disposition home or self-care (01) ==
LOC: COP 08:43
DX: K57.92 Diverticulitis of intestine, part unspecified, without perforation or abscess without bleeding (principal); Z45.2 Encounter for adjustment and management of vascular access device
CPT/HCPCS: J1335

== ENCOUNTER 2017-05-19 08:50 | Outpatient (CLI) | payer MEDICARE ==
[2017-05-19 09:10] VITALS: BP 136/58
== END 2017-05-19 10:10 | disposition home or self-care (01) ==
LOC: COP 08:50
DX: K57.92 Diverticulitis of intestine, part unspecified, without perforation or abscess without bleeding (principal); Z45.2 Encounter for adjustment and management of vascular access device
CPT/HCPCS: J1335

== ENCOUNTER 2017-05-20 10:45 | Outpatient (CLI) | payer MEDICARE ==
[2017-05-20 11:15] VITALS: BP 158/80
[2017-05-20 11:40] VITALS: BP 122/70
== END 2017-05-20 11:30 | disposition home or self-care (01) ==
LOC: COP 10:45
DX: K57.92 Diverticulitis of intestine, part unspecified, without perforation or abscess without bleeding (principal); Z45.2 Encounter for adjustment and management of vascular access device
CPT/HCPCS: J1335

== ENCOUNTER 2017-05-21 10:35 | Outpatient (CLI) | payer MEDICARE ==
[2017-05-21 10:54] VITALS: BP 157/48
[2017-05-21 11:39] VITALS: BP 151/55
== END 2017-05-21 11:39 | disposition home or self-care (01) ==
LOC: COP 10:35
DX: K57.92 Diverticulitis of intestine, part unspecified, without perforation or abscess without bleeding (principal); Z45.2 Encounter for adjustment and management of vascular access device
CPT/HCPCS: J1335

== ENCOUNTER 2017-05-22 10:50 | Outpatient (CLI) | payer MEDICARE ==
[2017-05-22 11:28] VITALS: BP 176/70
[2017-05-22 11:50] VITALS: BP 164/79
[2017-05-22 12:10] VITALS: BP 166/68
== END 2017-05-22 12:15 | disposition home or self-care (01) ==
LOC: COP 10:50
DX: K57.92 Diverticulitis of intestine, part unspecified, without perforation or abscess without bleeding (principal); Z45.2 Encounter for adjustment and management of vascular access device
CPT/HCPCS: J1335